=== PATIENT | female | born 1980 | race Caucasian/White ===

== ENCOUNTER 2016-08-18 12:15 | Emergency (ER) | payer BC, OTHER ==
[~2016-08-18] VITALS: Ht 170.2 cm; Wt 81.6 kg
--- NOTE | 2016-08-18 12:33 | ED Upper Extremity ---
General Chief Complaint: Laceration Stated Complaint: LEFT THUMB LAC Nursing Triage Note: pt states she sliced the tip of her left thumb at work. Nursing Sepsis Screen: No Definite Risk Source: patient Exam Limitations: no limitations History of Present Illness Time seen by provider: 12:31 Initial Comments To ER with laceration to the tip of her left thumb that occurred at work at [employer] Onset: just prior to arrival Severity: moderate Pain/Injury Location: bilateral thumb Modifying Factors: Worse With Movement Allergies and Home Medications Allergies Coded Allergies: No Known Allergies (Verified Allergy, Unknown, 04/14/06) Home Medications No Active Prescriptions or Reported Meds Constitutional: see HPI EENTM: see HPI Respiratory: no symptoms reported Cardiovascular: no symptoms reported Genitourinary: no symptoms reported Musculoskeletal: no symptoms reported Skin: see HPI Psychiatric/Neurological: No Symptoms Reported Past [id number] Hx Patient Social History Alcohol Use: Denies Use Recreational Drug Use: No Smoking Status: Current Everyday Smoker Type Used: Cigarettes 2nd Hand Smoke Exposure: Yes Recent Foreign Travel: No Contact w/Someone Who Travel: No Recent Infectious Disease Expo: No Recent Hopitalizations: No Immunizations Up To Date Tetanus Booster (TDap): Unknown Seasonal Allergies Seasonal Allergies: No Surgeries HX Surgeries: No Respiratory Hx Respiratory Disorders: No Cardiovascular Hx Cardiac Disorders: No Neurological Hx Neurological Disorders: No Reproductive System Hx Reproductive Disorders: No Genitourinary Hx Genitourinary Disorders: No Gastrointestinal Hx Gastrointestinal Disorders: No Musculoskeletal Hx Musculoskeletal Disorders: No Endocrine Hx Endocrine Disorders: No HEENT HX ENT Disorders: No Cancer Hx Cancer: No Psychosocial Hx Psychiatric Problems: No Integumentary HX Skin/Integumentary Disorder: No Blood Transfusions Hx Blood Disorders: No Adverse Reaction to a Blood Tr: No Physical Exam Vital Signs Vital Sign - Last 12Hours 08/18/16 12:24 Temp 98.3 Pulse 106 Resp 18 B/P (MAP) 138/87 Pulse Ox 98 O2 Delivery Room Air Capillary Refill : Less Than 3 Seconds General Appearance: WD/WN, no apparent distress HEENT: PERRL/EOMI, normal ENT inspection Neck: non-tender, full range of motion Respiratory: no respiratory distress, no accessory muscle use Gastrointestinal: normal bowel sounds, non tender, soft Elbow/Forearm: normal inspection, non-tender, Left Wrist: Yes normal inspection, Yes non-tender Hand: Left, laceration (avulsion of the very tip of her left thumb with active bleeding easily controlled with finger tourniquet) Neurologic/Psychiatric: alert, normal mood/affect, oriented x 3 Skin: normal color, warm/dry Laceration Repair : Wound Location: Upper Extremities Wound's Depth, Shape: superficial Wound Explored: clean Other Closure Supply: Wound Adhesive Progress/Results/Core Measures Results/Orders Vital Signs/I&O Vital Sign - Last 12Hours 08/18/16 12:24 Temp 98.3 Pulse 106 Resp 18 B/P (MAP) 138/87 Pulse Ox 98 O2 Delivery Room Air Blood Pressure Mean: 104 Departure Impression Impression: Primary Impression: Fingertip avulsion Disposition: HOME, SELF-CARE Condition: Stable Departure-Patient Inst. Decision time for Depature: 12:32 Referrals: NO,LOCAL PHYSICIAN (PCP/Family) Primary Care Physician Patient Instructions: SKIN AVULSION Add. Discharge Instructions: 1. Wear the fingertip protector for the next 2-3 days. He may take it off when you're showering but I would sleep with an onset at the glue doesn't get snagged on sheets or a pillow and pull it off. Wear the fingertip protector for the next 3 days while at work as well 2. Return to ER for any concerns. The glue will follow off on its own in about 3-5 days. All discharge instructions reviewed with patient and/or family. Voiced understanding. Scripts No Active Prescriptions or Reported Meds LAWANDA MAY APRN August 18, 2016 12:33
[2016-08-18] MEDS ORDERED: TETANUS,DIPTH,PERTUSS P/F (BOOSTRIX) 0.5 ML VIAL IM ONE (12:45)
[2016-08-18 12:49] VITALS: BP 138/87
== END 2016-08-18 12:49 | disposition home or self-care (01) ==
LOC: EDUNIT# 12:15 → ER 12:19
DX: S61.012A Laceration without foreign body of left thumb without damage to nail, initial encounter (principal); W26.2XXA Contact with edge of stiff paper, initial encounter; Y92.512 Supermarket, store or market as the place of occurrence of the external cause; Y99.0 Civilian activity done for income or pay; Z23 Encounter for immunization
CPT/HCPCS: 29130; 90471; 90715